=== PATIENT | female | born 1985 | race Caucasian/White ===

== ENCOUNTER 2016-11-18 19:48 | Emergency (ER) | payer OTHER ==
--- NOTE | ~2016-11-18 | CT2 ---
[facility] A Service of [facility] RADIOLOGY TEXT RESULTS PATIENT: KINJAL SCHROEDER LOCATION: SED : 87 UNIT #: [id number] AGE: [address]: Giovanni Frankel MD SEX: F ORDER DR: [id number] [address] [address] [id number] MR#: [id number] Acc #: [id number] NAME: KINJAL SCHROEDER : 1985 SEX: F STUDY DATE/TIME: 11/18/2016 21:31 UNIT: SED ROOM: STUDY DESCRIPTION: CT Abd and Pelv W Cont Attending Physician: Giovanni Frankel M.D. Ordering Physician: Giovanni Frankel M.D. Primary Care Physician: Primary Care Physician No MEDICAL IMAGING REPORT This report is preliminary unless electronic signature is present. EXAM CT abdomen and pelvis with contrast, 11/18/2016 INDICATION Bilateral flank pain for the past 4 days. PROCEDURE Contrast-enhanced CT of the abdomen and pelvis. This CT exam was performed with one or more of the following radiation dose reduction techniques: automatic exposure control, adjustment of mA and/or kV according to patient size, and iterative reconstruction. COMPARISON 03/01/2014 FINDINGS ABDOMEN WITH CONTRAST: Included lung bases are clear. The liver is prominent measuring 21.5 cm. Spleen is upper limits of normal at 12.3 cm. Kidneys, adrenal glands, pancreas, gallbladder unremarkable. There is moderate amount of stool in the colon. Appendix is not well seen on this study. No definite pericecal inflammation. There is no hydronephrosis. No radiodense ureteral calculus or hydronephrosis. PELVIS WITH CONTRAST: No radiodense bladder calculus. No pelvic mass or fluid. No aggressive-appearing bone lesion. IMPRESSION 1. No acute findings. [facility] A Service [facility] RADIOLOGY TEXT RESULTS PATIENT: KINJAL SCHROEDER LOCATION: SED : 87 UNIT #: [id number] AGE: [address]: Giovanni Frankel MD SEX: F ORDER DR: 2. Hepatomegaly. 3. Moderate colonic stool burden. Dictated by... Chinedu Cook M.D. THIS IS AN ELECTRONICALLY VERIFIED REPORT Chinedu Cook M.D. at 11/20/2016 7:00 AM DANIEL/lewis TD: 11/19/2016 04:56 JOB #: [id number] MEDICAL IMAGING REPORT
[~2016-11-18 19:48] MED LIST: ACETAMINOPHEN PO; AMOXICILLIN PO; ANSAID100 MG PO; BACTRIM DS TABL1 TA1 PO; BCP; DICLOFENAC PO; FLEXERIL PO; IBUPROFEN PO; IBUPROFEN600 MG PO; KEFLEX500 MG PO; MACROBID100 M1 PO; METHADONE PO; NAPROSYN500 MG PO; NAPROXEN PO; NO MEDICATIONS; PERCOCET PO; PERCOCET5/325 PO; PHENERGAN PO; PHENERGAN SUPP25 MG PR; PHENERGAN25 MG PO; PRENATAL VITAMI1 TA3 PO; PROTONIX PO; TYLOX 5/500 CAP1 CAP PO; ULTRAM PO; VICODIN 5/500 T1 TAB PO; VOLTAREN50 MG PO
[2016-11-18 20:00] LABS: URINE SOURCE CLEAN CATCH
[2016-11-18 20:02] LABS: URINE APPEARANCE SL CLOUDY; URINE BILIRUBIN NEG (NEG); URINE BLOOD TRACE-INTACT (NEG); URINE COLOR DK YELLOW; URINE GLUCOSE NEG (NORM); URINE KETONE NEG (NEG); URINE LEUKOCYTE ESTERASE 1+ (NEG); URINE NITRATE NEG (NEG); URINE PH 5.5 (5-8); URINE PROTEIN 1+ (NEG); URINE SPECIFIC GRAVITY >=1.030 (1.003-1.035)
[2016-11-18 20:06] LABS: MICRO INDICATED? YES
[2016-11-18 20:14] LABS: CULTURE INDICATED? YES; URINE AMORPHOUS SEDIMENT AMORP URATES; URINE BACTERIA 4+ (NEG); URINE MUCUS PRESENT; URINE SQUAMOUS EPITHELIAL CELL MODERATE /[HPF]; URINE WBC 50-100 /[HPF] (0-5)
[2016-11-18 21:11] LABS: BASOPHIL% 0.5 % (0-2.5); DIFF IND NO; EOSINOPHIL% 0.2 % (0.0-7.0); HEMATOCRIT 31.3 % (35.0-45.0); HEMOGLOBIN 10.4 gm/dL (12.0-16.0); LYMPHOCYTE# 1.6 X10e3 (1.0-3.5); LYMPHOCYTE% 17.8 % (17.0-45.0); MEAN CELL VOLUME 81.8 FL (83-96); MEAN CORPUSCULAR HEMOGLOBIN 27.1 PG (28-34); MEAN CORPUSCULAR HGB CONC 33.1 g/dL (30-36); MEAN PLATELET VOLUME 9.2 FL (6.5-11.5); MONOCYTE# 0.8 X10e3 (0-1.0); MONOCYTE% 9.5 % (3.0-12.0); NEUTROPHIL# 6.4 X10e3 (1.5-7.1); PLATELET COUNT 241 X10e3 (140-420); RED BLOOD COUNT 3.83 X10e (3.90-5.30); RED CELL DISTRIBUTION WIDTH 12.9 % (11.0-15.5); WHITE BLOOD COUNT 8.9 X10e3 (4.0-10.5)
[2016-11-18 21:12] LABS: ALBUMIN SERUM 3.3 g/dL (3.5-5.0); ALKALINE PHOSPHATASE 60 U/L (32-92); ALT (SGPT) 9 U/L (10-40); AST (SGOT) 17 U/L (10-42); BILIRUBIN,TOTAL 0.7 mg/dL (0.2-2.0); BLOOD UREA NITROGEN 8 mg/dL (9-23); BUN/CREATININE RATIO 13.33; CALCIUM SERUM 7.9 mg/dL (8.4-10.2); CARBON DIOXIDE 29 mmol/L (22-31); CHLORIDE 94 mmol/L (100-111); CREATININE SERUM 0.6 mg/dL (0.6-1.4); GLOM FILT RATE Estimated ABOVE60 mL/min (>60); GLUCOSE FASTING 93 mg/dL (70-110); POTASSIUM 2.8 mmol/L (3.5-5.1); PROTEIN TOTAL SERUM 7.1 g/dL (6.0-8.3); SODIUM 132 mmol/L (135-145)
== END 2016-11-18 22:27 | disposition home or self-care (01) ==
LOC: SED 19:48
PROVIDERS: Emergency Medicine
DX: N30.01 Acute cystitis with hematuria (principal); Z98.51 Tubal ligation status
CPT/HCPCS: 36415; 74177; 80053; 81003; 84703; 85025; 87086; 87088; 87186; 96374; 96375; 99284; 99285; J2270; J2405; Q9967

== ENCOUNTER 2017-04-22 15:35 | Emergency (ER) | payer OTHER ==
[~2017-04-22] VITALS: Ht 165.1 cm; Wt 55.8 kg
== END 2017-04-22 17:50 ==
LOC: CED 15:35
DX: T40.1X1A Poisoning by heroin, accidental (unintentional), initial encounter (principal); E11.9 Type 2 diabetes mellitus without complications; F17.210 Nicotine dependence, cigarettes, uncomplicated
CPT/HCPCS: 99285